=== PATIENT | male | born 1975 | race Caucasian/White ===

== ENCOUNTER → 2025-08-03 15:23 | Outpatient (REF) | payer BC, SELFPAY | LOC: RAD 15:23 | PROVIDERS: ATTENDING PHYSICIAN Internal Medicine | DX: R19.7 Diarrhea, unspecified (principal) | CPT/HCPCS: 74177; Q9967 ==

== ENCOUNTER 2025-08-11 06:24 | Day surgery (SDC) | payer BC, SELFPAY | END 2025-08-11 09:07 | disposition home or self-care (01) | LOC: GI 06:24 | PROVIDERS: ATTENDING PHYSICIAN Internal Medicine Gastroenterology | DX: C20 Malignant neoplasm of rectum (principal); K62.1 Rectal polyp; K57.30 Diverticulosis of large intestine without perforation or abscess without bleeding; K64.8 Other hemorrhoids; K56.690 Other partial intestinal obstruction | CPT/HCPCS: 45385; 45380; 88305 ==